=== PATIENT | male | born 1945 | race Caucasian/White ===

== ENCOUNTER → 2023-07-14 07:50 | Outpatient (REF) | payer MEDICARE, SELFPAY | LOC: RAD 07:50 | PROVIDERS: ATTENDING PHYSICIAN Family Medicine | DX: J98.19 Other pulmonary collapse (principal) | CPT/HCPCS: 71250 ==

== ENCOUNTER → 2024-01-13 09:11 | Outpatient (REF) | payer MEDICARE, SELFPAY | LOC: RAD 09:11 | PROVIDERS: ATTENDING PHYSICIAN Internal Medicine Critical Care Medicine; FAMILY PHYSICIAN Family Medicine | DX: R93.89 Abnormal findings on diagnostic imaging of other specified body structures (principal) | CPT/HCPCS: 71250 ==

== ENCOUNTER → 2024-03-15 17:07 | Outpatient (REF) | payer MEDICARE, SELFPAY | LOC: PAVMRI 17:07 | PROVIDERS: ATTENDING PHYSICIAN Family Medicine | DX: M54.50 Low back pain, unspecified (principal); M54.31 Sciatica, right side | CPT/HCPCS: 72148; 73721 ==

== ENCOUNTER → 2024-11-08 15:11 | Outpatient (REF) | payer MEDICARE, SELFPAY | LOC: RCS 15:11 | PROVIDERS: ATTENDING PHYSICIAN Internal Medicine Cardiovascular Disease; FAMILY PHYSICIAN Family Medicine | DX: I35.0 Nonrheumatic aortic (valve) stenosis (principal) | CPT/HCPCS: 93306 ==

== ENCOUNTER → 2024-11-15 16:36 | Outpatient (REF) | payer MEDICARE, SELFPAY | LOC: RAD 16:36 | PROVIDERS: ATTENDING PHYSICIAN Family Medicine | DX: M79.641 Pain in right hand (principal); R22.31 Localized swelling, mass and lump, right upper limb | CPT/HCPCS: 73140 ==

== ENCOUNTER → 2024-12-14 10:59 | Outpatient (REF) | payer MEDICARE, SELFPAY | LOC: RAD 10:59 | PROVIDERS: ATTENDING PHYSICIAN Family Medicine | DX: M79.672 Pain in left foot (principal) | CPT/HCPCS: 73630 ==

== ENCOUNTER 2025-03-18 15:36 | Emergency (ER) | payer MEDICARE, SELFPAY ==
[2025-03-18 15:45] VITALS: BP 157/79
[2025-03-18 16:14] LABS: Hematocrit 43.9 % (39.0-52.0); Hemoglobin 14.1 g/dL (13.0-18.0); Mean Corp Hgb Conc. 32.1 g/dL (33.0-37.0); Mean Corpuscular Volume 90.1 fL (80.0-94.0); Nucleated Red Blood Cells % 0 % (-); Platelet Count 157 10^3/uL (130-400); Red Cell Dist. Width 12.6 % (11.5-14.5)
[2025-03-18 16:43] LABS: ALT (SGPT) 12 U/L (0-50); AST (SGOT) 24 U/L (17-59); Albumin 4.5 g/dl (3.5-5.0); Alkaline Phosphatase 55 U/L (38-126); Blood Urea Nitrogen 22 mg/dl (9-20); Calcium 9.2 mg/dl (8.4-10.2); Carbon Dioxide 28 mmol/L (22-30); Chloride 107 mmol/L (98-107); Glucose 104 mg/dl (70-99); Potassium 3.9 mmol/L (3.5-5.1); Sodium 141 mmol/L (135-145); Total Protein 6.8 g/dl (6.3-8.2); eGFR > 60.00
[2025-03-18 16:54] LABS: Troponin I 0.017 ng/ml
[2025-03-18 17:07] VITALS: BMI 27.6
[2025-03-18 17:12] VITALS: BP 139/96
[2025-03-18 18:00] VITALS: BP 143/80
[2025-03-18 19:00] VITALS: BP 140/74
--- NOTE | 2025-03-18 19:56 | ED.GENMED ---
History of Present Illness
General
Chief Complaint: Dizziness
Time Seen by Provider: 03/18/25 18:58
History of Present Illness
History of Present Illness:
79-year-old male with history of high blood pressure and Parkinson's presenting to the emergency department with episode of dizziness. Patient reports around noon today at [facility], he started to feel acutely dizzy. They went home and he laid down
for about 20 minutes and symptoms improved. Reports that symptoms started to feel better after lying down. They went to urgent care who encouraged him to come to the hospital for further assessment. Denies associated chest pain, difficulty
breathing, weakness, numbness of extremities, acute visual changes, fever or recent illness. Denies ever having anything like this before. at bedside reports that during the episode patient looked different, pale. No history of vertigo. He
currently feels back to normal. No additional history obtained at this time.
Past History
Past History
ED Past Medical History: HTN, Hypercholesterolemia, Valvular disease and Hypothyroidism
ED Past Surgical History: Orthopedic (right rotator cuff repair)
Social History
Tobacco: Non-smoker
Alcohol: Occasional
Personal:
Living: with family
Phy Exam
Physical Exam
Physical Exam:
General: Well-appearing, no clinical signs of dehydration, nontoxic and in no acute distress
HEENT: protecting airway, pupils equal and reactive, extraocular movements intact
Neck: appears supple
CV: Normal heart rate, regular rhythm
Resp: No accessory muscle use, no increased work of breathing, lungs clear to auscultation bilaterally
Abd: No distention
Extremities: No deformities, no swelling
Neuro: alert, no focal neurologic deficit
: deferred
Rectal: deferred
Psych: Normal affect
Skin: Intact
Course
Orders/Labs/Results
Orders:
Orders
03/18/25 15:49
ECG [Electrocardiogram (*1)] Urgent
Reason for Study: Vertigo / Dizzy
EKG- Treatment ONCE
03/18/25 16:05
Complete Blood Count/With Diff Urgent
Comprehensive Metabolic Panel Urgent
Troponin I Urgent
03/18/25 18:34
CT Head W/o Iv Contrast Urgent
Comment:
Reason For Exam: vertigo
03/18/25 19:55
Electrocardiogram (*1) Urgent
Reason for Study: Heart Failure, Left
EKG- Treatment ONCE
Abnormal Lab Results
03/18/25
16:05
MCHC 32.1 L g/dL
(33.0-37.0)
MPV 11.5 H fL
(7.4-10.4)
Absolute Monos (auto) 0.8 H 10^3/uL
(0.1-0.6)
Lymphocytes % 19.5 L %
(20.5-51.1)
Monocytes % 10.0 H %
(1.7-9.3)
BUN 22 H mg/dl
(9-20)
Glucose 104 H mg/dl
(70-99)
03/18/25 16:05
03/18/25 16:05
Vital Signs
Initial and Last Documented VS:
Initial Vital Signs
Temp Pulse Resp BP Pulse Ox
97.5 F 70 16 157/79 100
03/18/25 15:45 03/18/25 15:45 03/18/25 15:45 03/18/25 15:45 03/18/25 15:45
Last Documented Vital Signs
Temp Pulse Resp BP Pulse Ox
98.2 F 76 19 140/74 98
03/18/25 17:12 03/18/25 19:15 03/18/25 19:15 03/18/25 19:00 03/18/25 20:00
MDM/Problems Addressed
MDM/Problems Addressed:
79-year-old male with history of Parkinson's and high blood pressure presenting for episode of dizziness. Vital signs on arrival are significant for high blood pressure which improved without intervention.
On exam, patient resting comfortably, no acute distress. Patient currently asymptomatic. EKG obtained on arrival, no obvious ischemia, however difficult interpretation secondary to patient's Parkinson's and tremors. Will repeat. However low
suspicion for ACS in the absence of any chest pain or cardiac symptoms. No present focal neurologic deficits. Resting tremor, without additional acute concerning findings on exam. Without present concern for central neurologic process. Labs
obtained prior to my assessment, unremarkable without electrolyte abnormality or abnormal blood count. Ultimately suspect episode of vasovagal near syncope versus vertigo. Reassuring that patient symptoms have improved with lower suspicion for
cerebellar infarct or posterior stroke. CT obtained prior to my assessment, unremarkable. Patient ambulated steadily, remains asymptomatic. At this time given resolution of symptoms, reassuring EKG, laboratory analysis, examination, feel stable
for discharge with close interval follow-up with primary care doctor. Return precautions discussed and patient verbalized understanding
*Pulse Oximetry
SaO2: 98
Oxygen Mode of Delivery: Room air
Patient hypoxic: no
*EKG
Interpreted by ED Provider?: Yes
EKG Intrepretation Date: 03/18/25
EKG Intrepretation Time: 20:04
Interpretation: normal
Comparison EKG: no changes (07/25/18)
Heart Rate: 73
Rate: normal
Rhythm: sinus
[place]: normal axis
Interval: normal interval
QRS Pattern: normal QRS
Ischemia: no ischemia
*Critical Care Note
Total Time (30-74mins, 75-104mins- exclusive of procedures): Not Applicable
ED Attending Note
-
Portions of this chart may have been created with voice recognition software.� Occasional wrong word or��sound alike� substitutions may have occurred due to the inherent limitations of voice recognition software.
Discharge Plan
Departure
Patient Disposition: Home (Routine Discharge)
Date of Disposition: 03/18/25
Time of Disposition: 20:02
Patient with high blood pressure during this ER visit?: Yes
Condition: Good
Discharge Problem:
Syncope, near, Dizziness
Instructions: Near Fainting (DC), Dizziness, BLOOD PRESSURE
Prescriptions:
No Action
levothyroxine 175 MCG tablet
175 mcg PO DAILY
amlodipine 5 MG tablet
7.5 mg PO DAILY
losartan-hydrochlorothiazide 1 TAB tablet
1 tab PO DAILY
atorvastatin 10 MG tablet
20 mg PO DAILY
lansoprazole 15 MG capsule,delayed release(DR/EC)
15 mg PO DAILY
Referrals:
Ilan Ramirez DO [Family Provider, Family Practice]
Activity Restrictions/Additional Instructions:
You were seen in the emergency department for episode of dizziness
You were found to have reassuring vital signs, EKG, laboratory analysis. We recommend close follow-up with your primary care doctor.
Return to the emergency department for any worsening of your symptoms, or any development of chest pain, difficulty breathing, abdominal pain with persistent vomiting and inability to tolerate food or liquid by mouth (concern for dehydration),
weakness, headache or confusion, fever greater than 100.4, or any additional symptoms that are concerning to you.
Thank you for choosing [facility].
Interventions
Interventions:
*Risk Screen - Suicide Last Done: 03/18/25 17:09
*General Assessment Last Done: 03/18/25 17:09
*Neglect/Abuse Screening Last Done: 03/18/25 17:09
*ED- Fall Risk Assessment Last Done: 03/18/25 17:09
*ED COVID-19 Vaccine History Last Done: 03/18/25 17:09
*ED Influenza Vaccine History Last Done: 03/18/25 17:09
ED- Neurological Assessment Last Done: 03/18/25 17:13
ED- Cardiac Assessment Last Done: 03/18/25 17:13
Discharge Date and Time
Print Language: ARMENIAN
== END 2025-03-18 20:16 | disposition home or self-care (01) ==
LOC: EMR 15:36
PROVIDERS: Emergency Medicine; EMERGENCY PHYSICIAN Student in an Organized Health Care Education/Training Program; FAMILY PHYSICIAN Family Medicine
DX: R55 Syncope and collapse (principal); I10 Essential (primary) hypertension; G20.A1 Parkinson's disease without dyskinesia, without mention of fluctuations; E78.00 Pure hypercholesterolemia, unspecified; I38 Endocarditis, valve unspecified; E03.9 Hypothyroidism, unspecified
CPT/HCPCS: 99284; 70450; 80053; 84484; 85025; 93005